=== PATIENT | male | born 1970 | race Two or more races ===

== ENCOUNTER 2018-06-09 18:34 | Emergency (ER) | payer BC ==
[~2018-06-09] VITALS: Ht 167.6 cm; Wt 75.9 kg
[~2018-06-09 18:34] MED LIST: ACETAMINOPHEN500 M1 PO; BACTRIM DS TABL1 TAB PO; GLIMEPIRIDE1 MG PO; GLUCOPHAGE1000 MG PO; HYDROCODONE-APA1 TAB PO; LISINOPRIL2.5 MG PO; [UNRECOGNIZED DRUG - REMARK]
[2018-06-09 18:41] VITALS: Ht 167.6 cm; Wt 75.9 kg
[2018-06-09] MEDS ORDERED: ACETAMINOPHEN500 M1 PO (21:51)
[2018-06-09] MEDS ORDERED: CYCLOBENZAPRINE10 MG PO (21:51)
[2018-06-09] MEDS ORDERED: IBUPROFEN800 MG PO (21:51)
[2018-06-09 22:18] VITALS: BP 148/93
== END 2018-06-09 22:05 | disposition home or self-care (01) ==
LOC: D.ER 18:34
DX: S76.312A Strain of muscle, fascia and tendon of the posterior muscle group at thigh level, left thigh, initial encounter (principal); X58.XXXA Exposure to other specified factors, initial encounter; Y93.89 Activity, other specified; Y92.89 Other specified places as the place of occurrence of the external cause; E11.9 Type 2 diabetes mellitus without complications; I10 Essential (primary) hypertension

== ENCOUNTER 2018-08-07 12:49 | Emergency (ER) | payer BC ==
[~2018-08-07] VITALS: Ht 167.6 cm; Wt 70.9 kg
[~2018-08-07 12:49] MED LIST changes: +CYCLOBENZAPRINE10 MG PO; +IBUPROFEN800 MG PO
[2018-08-07 12:53] VITALS: Ht 167.6 cm; Wt 70.9 kg
[2018-08-07] MEDS ORDERED: BACTRIM 400-801 TAB PO (15:59)
[2018-08-07] MEDS ORDERED: TORADOL10 MG PO (15:59)
[2018-08-07 16:35] VITALS: BP 148/89
== END 2018-08-07 16:36 | disposition home or self-care (01) ==
LOC: D.ER 12:49
DX: L02.413 Cutaneous abscess of right upper limb (principal); E11.9 Type 2 diabetes mellitus without complications; I10 Essential (primary) hypertension

== ENCOUNTER 2018-08-09 12:23 | Emergency (ER) | payer BC ==
[~2018-08-09] VITALS: Ht 167.6 cm; Wt 75.0 kg
[~2018-08-09 12:23] MED LIST changes: +BACTRIM 400-801 TAB PO; +TORADOL10 MG PO
[2018-08-09 13:00] VITALS: Ht 167.6 cm; Wt 75.0 kg
[2018-08-09 14:53] VITALS: BP 165/95
== END 2018-08-09 14:53 | disposition home or self-care (01) ==
LOC: D.ER 12:23
DX: L02.413 Cutaneous abscess of right upper limb (principal); Z48.00 Encounter for change or removal of nonsurgical wound dressing

== ENCOUNTER 2019-01-13 10:40 | Emergency (ER) | payer SELFPAY ==
[~2019-01-13] VITALS: Ht 167.6 cm; Wt 72.7 kg
[2019-01-13 10:55] VITALS: Ht 167.6 cm; Wt 72.7 kg
[2019-01-13 11:40] LABS: HEMATOCRIT 41.1 % (42.0-54.0); HEMOGLOBIN 14.8 g/dL (13.5-17.5); MCH 33.3 pg (26.0-34.0); MCV 92.6 fL (80.0-100.0); MEAN PLATELET VOLUME 10.5 fL (7.4-10.4); RBC 4.44 10x6/uL (4.20-6.10); RDW 12.2 % (11.5-14.5); WBC 2.9 10x3/uL (4.8-10.8)
[2019-01-13 11:54] LABS: PLATELET COUNT 155 10x3/uL (130-400)
[2019-01-13 12:01] LABS: ALBUMIN 3.5 g/dL (3.4-5.0); ALKALINE PHOSPHATASE 139 U/L (46-116); ALT (SGPT) 34 U/L (10-68); BILIRUBIN - TOTAL 0.27 mg/dL (0.2-1.3); CALC OSMOLALITY 298 mosm/kg (275-300); CALCIUM 9.5 mg/dL (8.5-10.1); CARBON DIOXIDE 23.3 mmol/L (21.0-32.0); CHLORIDE - SERUM 104 mmol/L (98-107); CREATININE - SERUM 0.6 mg/dL (0.6-1.3); GLUCOSE 362 mg/dL (74-106); POTASSIUM - SERUM 3.9 mmol/L (3.5-5.1); PROTEIN - SERUM 7.5 g/dL (6.4-8.2); SODIUM 142 mmol/L (136-145); UREA NITROGEN 14 mg/dL (7-18); eGFR NON AFRICAN AMERICAN > 90 mL/min (90-120)
[2019-01-13 12:59] LABS: LYMPHOCYTES 57 % (15-50); MONOCYTES 5 % (2-11); NEUTROPHILS 38 % (40-80); PLATELET ESTIMATE NORMAL
[2019-01-13 14:23] VITALS: BP 134/68
[2019-01-13 14:25] LABS: UDS - AMPHET NEGATIVE QUAL (NEGATIVE); UDS - BARB NEGATIVE QUAL (NEGATIVE); UDS - BENZO POSITIVE QUAL (NEGATIVE); UDS - COCAINE NEGATIVE QUAL (NEGATIVE); UDS - OPIATE NEGATIVE QUAL (NEGATIVE); UDS - PCP NEGATIVE QUAL (NEGATIVE); UDS - THC NEGATIVE QUAL (NEGATIVE)
[2019-01-13 14:46] LABS: APPEARANCE HAZY (CLEAR); BILIRUBIN NEGATIVE (NEGATIVE); COLOR STRAW (YELLOW); GLUCOSE NEGATIVE (NEGATIVE); KETONE NEGATIVE (NEGATIVE); NITRITE NEGATIVE (NEGATIVE); PROTEIN NEGATIVE (NEGATIVE); UROBILINOGEN NORMAL (NORMAL)
[2019-01-13 14:52] LABS: BACTERIA MANY /hpf (NONE SEEN); RED CELLS - URINE 0-5 /hpf (0-5)
== END 2019-01-13 14:24 | disposition home or self-care (01) ==
LOC: D.ER 10:40
PROVIDERS: Family Medicine
DX: F10.129 Alcohol abuse with intoxication, unspecified (principal); F10.10 Alcohol abuse, uncomplicated; Z91.19 Patient's noncompliance with other medical treatment and regimen; E11.65 Type 2 diabetes mellitus with hyperglycemia

== ENCOUNTER 2021-05-01 08:10 | Emergency (ER) | payer SELFPAY ==
[~2021-05-01] VITALS: Ht 167.6 cm; Wt 81.6 kg
[2021-05-01 08:41] VITALS: BP 133/101; Ht 167.6 cm; Wt 81.6 kg
[2021-05-01] MEDS ORDERED: OMEPRAZOLE20 M1 PO (08:58)
[2021-05-01 09:34] LABS: BASOPHILS 0.4 % (0-2); EOSINOPHILS 2.3 % (0-7); HEMATOCRIT 41.5 % (42.0-54.0); LYMPHOCYTES 23.9 % (15-50); MCH 30.1 pg (26.0-34.0); MCHC 33.8 g/dL (31.0-37.0); MCV 89.1 fL (80.0-100.0); MEAN PLATELET VOLUME 6.9 fL (7.4-10.4); MONOCYTES 8.4 % (2-11); RBC 4.66 10x6/uL (4.20-6.10); RDW 13.3 % (11.5-14.5); WBC 4.7 10x3/uL (4.8-10.8)
[2021-05-01 09:35] LABS: PLATELET COUNT 247 10x3/uL (130-400)
[2021-05-01 09:38] LABS: CALC OSMOLALITY 281 mosm/kg (275-300); CALCIUM 8.7 mg/dL (8.5-10.1); CARBON DIOXIDE 29.1 mmol/L (21.0-32.0); CHLORIDE - SERUM 102 mmol/L (98-107); POTASSIUM - SERUM 4.3 mmol/L (3.5-5.1); SODIUM 139 mmol/L (136-145); UREA NITROGEN 22 mg/dL (7-18); eGFR NON AFRICAN AMERICAN 84 mL/min (90-120)
[2021-05-01 09:39] LABS: GLUCOSE 110 mg/dL (74-106)
[2021-05-01 09:42] LABS: BILIRUBIN NEGATIVE (NEGATIVE); KETONE NEGATIVE mg/dL (< 1+); NITRITE NEGATIVE (NEGATIVE); PH 6.5 (5.0-8.0); SQUAMOUS EPITHELIAL <1 HPF (0-4); UROBILINOGEN NORMAL mg/dL (< 2); WHITE CELLS - URINE 87 HPF (0-1)
[2021-05-01] MEDS ORDERED: DOXYCYCLINE HY100 M2 PO (10:54)
== END 2021-05-01 11:34 | disposition home or self-care (01) ==
LOC: D.ER 08:10
PROVIDERS: Emergency Medicine
DX: N39.0 Urinary tract infection, site not specified (principal); K21.9 Gastro-esophageal reflux disease without esophagitis